=== PATIENT | female | born 1985 | race Caucasian/White ===

== ENCOUNTER 2018-04-14 00:49 | Emergency (ER) | payer SELFPAY ==
[~2018-04-14] VITALS: Ht 162.6 cm; Wt 81.6 kg
--- NOTE | 2018-04-14 00:56 | Emergency Room Report ---
History of Present Illness General Chief Complaint: Neck Injury Present Illness HPI 32 F c/o neck pain. There is no actual injury. Pt. was sitting on side of sidewalk outside apartment complex. [place] called 911. They said pt. sitting there, looking down. They put her in a c-collar, but there was no evidence of any trauma. Pt. denies trauma, no headache. She is supposed to take Risperidone , Luvox but she is trying "to go natural." Unknown how long noncompliant. Pt. says she was/is? staying with her brother but lives in [facility]. Denies recent hospitalization. Denies medical issues other than bipolar d/o. Pt. is not a great historian. No old EMR here. Allergies: Coded Allergies: No Known Allergies (Unverified , 04/14/18) Patient History Last Menstrual Period: last month Now: No Review of Systems Constitutional: Reports: see HPI Eye: Reports: no symptoms ENT: Reports: no symptoms Respiratory: Reports: no symptoms Cardiovascular: Reports: no symptoms Gastrointestinal: Reports: no symptoms Genitourinary: Reports: no symptoms Musculoskeletal: Reports: muscle pain, muscle stiffness Skin: Reports: no symptoms Psychiatric: Reports: prior hx, depressed feelings, emotional problems Neurological: Reports: no symptoms Endocrine: Reports: no symptoms Hematologic/Lymphatic: Reports: no symptoms Allergic: Reports: no symptoms All Other Systems: negative except mentioned in HPI Physical Exam Vital Signs Date Time Temp Pulse Resp B/P (MAP) Pulse Ox O2 Delivery O2 Flow Rate FiO2 04/14/18 00:29 98.1 94 20 134/91 100 Room Air Sp02 EP Interpretation: reviewed, normal General Appearance: normal inspection, well appearing, no apparent distress, alert, GCS 15, non-toxic Head: normocephalic, atraumatic Eyes: bilateral eye normal inspection, bilateral eye PERRL, bilateral eye EOMI ENT: normal ENT inspection, hearing grossly normal, normal pharynx, no angioedema, normal voice, moist mucus membranes Neck: normal inspection, full range of motion, supple, no meningismus, no bony tend, other - no cervical spine tenderness, no sign of trauma, no swelling/ erythema Respiratory: normal inspection, lungs clear, normal breath sounds, no rhonchi, no respiratory distress, no retraction, no accessory muscle use, no wheezing Cardiovascular #1: normal inspection, regular rate, rhythm, no edema Gastrointestinal: normal inspection, normal bowel sounds, non tender, soft, no mass, non-distended Musculoskeletal: gait/station normal, normal range of motion Neurologic: normal inspection, alert, oriented x3, responsive, motor strength/ tone normal Psychiatric: memory normal, anxious, other - somewhat labile mood but able to have a coherent conversation with me. not responding to internal stimuli. Suicide Risk Assessment: Suicidal Ideation: No Had intent to initiate attempt: No Pt's plan for suicide attempt: No Has means to complete attempt: No Skin: normal inspection, normal color, no rash, warm/dry Medical Decision Making Diagnostic Impression: Primary Impression: Muscle strain Additional Impression: Bipolar 1 disorder, mixed ER Course Will Rx. Ibuprofen, rest. 330: pt. improved; wants to go. ambulatory without difficulty Last Vital Signs Date Time Temp Pulse Resp B/P (MAP) Pulse Ox O2 Delivery O2 Flow Rate FiO2 04/14/18 00:29 98.1 94 20 134/91 100 Room Air Status: improved Disposition: HOME, SELF-CARE Condition: Stable Scripts Naproxen* (NAPROXEN*) 375 Mg Tablet. 375 MG ORAL TWICE A DAY for 10 Days, #20 TAB Prov: Wesly Simmons M.D. 04/14/18 Patient Instructions: Muscle Pain, Adult Wesly Simmons M.D. Apr 14, 2018 00:56
[2018-04-14] MEDS ORDERED: NAPROXEN375 M2 ORAL (02:06)
[2018-04-14 03:00] VITALS: BP 131/79
[2018-04-14 03:20] VITALS: BP 131/79
== END 2018-04-14 03:23 | disposition home or self-care (01) ==
LOC: EDBD 00:49 → EMR 01:05
DX: T14.8XXA Other injury of unspecified body region, initial encounter (principal); F31.9 Bipolar disorder, unspecified; X58.XXXA Exposure to other specified factors, initial encounter; Y92.9 Unspecified place or not applicable
CPT/HCPCS: 99283